=== PATIENT | female | born 1990 | race Caucasian/White ===

== ENCOUNTER 2023-03-02 00:35 | Inpatient (IN) ==
[2023-03-02] MEDS ORDERED: LIDOCAINE 1% LOCAL 20 ML VIAL INFIL PRN (01:15)
[2023-03-02] MEDS ORDERED: OXYTOCIN 30 UNITS/NSS 30 UNITS/500 ML BAG IV PRN ×3 (01:15→11:49)
[2023-03-02] MEDS: LACTATED RINGER'S 1,000 ML IV PRN ×3 (01:26→07:36)
[2023-03-02] MEDS ORDERED: PENICILLIN GK 6 MU in DEXTROSE 5% 250 ML IV STA (01:31)
--- NOTE | 2023-03-02 01:35 | History & Physical Report ---
Date of Service March 02, 2023 Assessment & Plan (1) Encounter for supervision of normal in multigravida: Plan: IUP at 40 weeks and 0 days gestation presents in active labor. GBS is positive so we will begin penicillin per protocol. Epidural when requested. Anticipate vaginal delivery History of Present Illness Primary Care Provider: NO PCP Patient is a 32-year-old 2 para 1-0-0-1 female. EDC 03/02/2023 who presents in active labor. She has had some bloody show but no leaking fluid. has been uncomplicated. GBS negative. Allergies Allergy/AdvReac Type Severity Reaction Status Date / Time avocado AdvReac Vomiting Verified 03/01/23 11:59 banana AdvReac Vomiting Verified 03/01/23 11:59 egg AdvReac shortness Verified 03/01/23 11:59 of breath No Known Drug Allergies AdvReac Verified 03/01/23 11:59 Home Medications Medication Instructions Recorded Confirmed Type multivitamin 1 tab PO DAILY 09/14/22 03/02/23 History vitamin#30 30 mg iron-10 1 cap PO DAILY #90 caps 12/10/22 03/01/23 Rx mg iron-folic acid 1 mg-omg3 capsule loratadine 5 mg-pseudoephedrine ER 1 tab PO Q12H PRN congestion #30 01/21/23 03/02/23 Rx 120 mg tablet,extended tabs release,12hr (Claritin-D 12 Hour) Patient History Surgical History S/P wisdom tooth extraction Family History Mother Thyroid disease Sister Leukemia Other Diabetes Denies family history of Ovarian cancer Breast cancer Colorectal cancer Social History Smoking Status: Never smoker Do You Dip or Chew Tobacco: No; Hx Alcohol Use: No Hx Substance Use: No Preferred Language: Indonesian Communication Ability: Effective 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 Beliefs That Will Affect Care: None marital status: marital status details: Ravi [phone] Current Living Situation: Spouse Current Living Situation Comment: lives with and son current occupational status: unemployed Other Information That Helps Us Care for You: No Feels Safe at Home: Yes Safety Concerns: Feels Safe At This Time Assistive Devices: None Review of Systems All systems reviewed & are unremarkable except as noted in HPI & below Physical Exam Constitutional: WD/WN, vitals as above Psychiatric: A+Ox3, euthymic affect Genitourinary: OB Exam Abdomen: + vertex, + estimated weight (6-7 pounds) and + regular contractions (Q4-5 minutes) Manual OB Exam: + cervical dilation 6 cm, + cervical effacement 80% and + station -2 OB Exam Monitor Tracing: + external FHT monitor used, + external uterine monitor used, + category I and + normal FHT variability Results & Data Vital Signs (Past 12 Hours) Vital Signs Temp Pulse Resp BP 03/02/23 01:10 80 102/70 03/02/23 00:35 98.1 F 18 Code Status & VTE Plan VTE Prophylaxis Plan VTE Prophylaxis will be ordered: No Coding Level of Care Code None Diagnoses Encounter for supervision of normal in multigravida Z34.80
[2023-03-02 01:42] LABS: Mean Corpuscular Hemoglobin 31.6 pg (25.0-34.0); Mean Corpuscular Hgb Conc 34.2 g/dL (32.0-36.0); Mean Corpuscular Volume 92.2 fL (80.0-100.0); Mean Platelet Volume 9.7 fL (9.4-12.4); Platelet Count 292 K/uL (130-400); RDW Standard Deviation 47.6 fL (36.4-46.3); Red Blood Count 4.12 M/uL (4.20-5.40); White Blood Count 12.33 K/ul (4.8-10.8)
[2023-03-02] MEDS ORDERED: fentaNYL citrate PF 100 MCG/2 ML VIAL ONE (01:58)
[2023-03-02] MEDS ORDERED: ePHEDrine sulfate 50 MG/ML AMP ONE (01:59)
[2023-03-02] MEDS ORDERED: fentANYL 2 MCG/ML BUPIVacaine 0.125%-NSS 100ML BAG ONE (01:59)
[2023-03-02] MEDS ORDERED: BUPIVACAINE 0.25% PF 30 ML VIAL ONE (01:59)
[2023-03-02] MEDS ORDERED: LIDOCAINE 2%/EPINEPHRINE 1:200,000 20 ML PF ONE (01:59)
[2023-03-02] MEDS ORDERED: SODIUM CHLORIDE 0.9% PF INJ 10 ML VIAL ONE (01:59)
[2023-03-02] MEDS ORDERED: LIDOCAINE 2% MPF LOCAL 5 ML VIAL EPI PRN (02:11)
[2023-03-02] MEDS ORDERED: SODIUM CHLORIDE 0.9% PF INJ 10 ML VIAL EPI PRN (02:11)
[2023-03-02] MEDS ORDERED: ROPIVACAINE 0.5% PF 5 MG/ML 20 ML VIAL EPI PRN (02:11)
[2023-03-02] MEDS ORDERED: ePHEDrine sulfate 50 MG/ML AMP IV PRN (02:11)
[2023-03-02] MEDS ORDERED: BUPIVACAINE 0.25% PF 30 ML VIAL EPI STA (02:11)
[2023-03-02] MEDS ORDERED: ONDANSETRON INJ 2 MG/ML 2 ML VIAL IV PRN (02:11)
[2023-03-02] MEDS ORDERED: fentaNYL citrate PF 100 MCG/2 ML VIAL EPI STA (02:11)
[2023-03-02] MEDS ORDERED: fentaNYL citrate PF 100 MCG/2 ML VIAL EPI PRN (02:11)
[2023-03-02] MEDS ORDERED: fentANYL 2 MCG/ML BUPIVacaine 0.125%-NSS 100ML BAG EPI PRN (02:11)
[2023-03-02] MEDS ORDERED: diphenhydrAMINE 50 MG/ML VIAL IV PRN (02:11)
[2023-03-02] MEDS ORDERED: SODIUM CHLORIDE 0.9% PF INJ 10 ML VIAL EPI STA (02:11)
[2023-03-02] MEDS ORDERED: NALBUPHINE HCL 5 MG in SYRINGE 0 ML IV PRN (02:11)
[2023-03-02] MEDS ORDERED: BUPIVACAINE 0.25% PF 30 ML VIAL EPI PRN (02:11)
[2023-03-02] MEDS ORDERED: LIDOCAINE 2%/EPINEPHRINE 1:200,000 20 ML PF EPI STA (02:11)
--- NOTE | 2023-03-02 02:13 | Anesthesiology Consultation ---
Date of Service March 02, 2023 Assessment & Plan (1) Encounter for pre-operative examination: Chart Review Chart Review: Patient NOT seen in Pre Admission Testing and Acceptable Risk for Labor Epidural Consults Requested none History Height/Weight Height: 5 ft 4 in Weight: 65.771 kg Allergies Allergy/AdvReac Type Severity Reaction Status Date / Time avocado AdvReac Vomiting Verified 03/01/23 11:59 banana AdvReac Vomiting Verified 03/01/23 11:59 egg AdvReac shortness Verified 03/01/23 11:59 of breath No Known Drug Allergies AdvReac Verified 03/01/23 11:59 Medications Home Medications Medication Instructions Recorded Confirmed Last Taken multivitamin 1 tab PO DAILY 09/14/22 03/02/23 Unknown vitamin#30 30 mg iron-10 1 cap PO DAILY #90 caps 12/10/22 03/01/23 03/02/23 mg iron-folic acid 1 mg-omg3 capsule loratadine 5 mg-pseudoephedrine ER 1 tab PO Q12H PRN congestion #30 01/21/23 03/02/23 Unknown 120 mg tablet,extended tabs release,12hr (Claritin-D 12 Hour) Active Medications Generic Name Dose Route Start Last Admin Trade Name Freq PRN Reason Stop Dose Admin Lactated Ringer's 1,000 mls @ 125 mls/hr 03/02/23 01:15 03/02/23 01:26 Lr IV 03/04/23 01:14 125 mls/hr .Q8H PRN Administration L&D Protocol Protocol Penicillin G Potassium 6 mu/ 262 mls @ 262 mls/hr 03/02/23 01:31 03/02/23 01:50 Dextrose IV 03/02/23 02:30 262 mls/hr NOW STA Administration Past Medical History Medical History (Updated 03/02/23 @ 02:13 by Colin Agee MD) Encounter for pre-operative examination Exercise / Class Metabolic Activity II 4-5 Yardwork/Stairs/Walk up hill Past Family History Family History Mother Thyroid disease Sister Leukemia Other Diabetes Denies family history of Ovarian cancer Breast cancer Colorectal cancer Past Surgical History Surgical History S/P wisdom tooth extraction Social History Smoking Status: Never smoker Do You Dip or Chew Tobacco: No Hx Alcohol Use: No Hx Substance Use: No Physical Exam Vital Signs Last Vital Signs Temp 36.7 C 03/02/23 00:35 Pulse 101 H 03/02/23 02:29 Resp 18 03/02/23 00:35 BP 107/64 03/02/23 02:31 Pulse Ox 94 03/02/23 02:29 Testing Laboratory Results 03/02/23 01:29
[2023-03-02] MEDS: PENICILLIN GK 3 MU in DEXTROSE 5% 100 ML IV PRN ×2 (06:27→10:52)
--- NOTE | 2023-03-02 11:45 | Delivery Summary ---
Vaginal Delivery Summary Date of Service March 02, 2023 Vaginal Delivery Summary and 2nd Degree LAC Patient progressed to 10 cm dilated 100% effaced +2 station pushed over intact perineum with epidural anesthesia and delivered a viable male with weight and Apgars pending. Patient pushed over approximately 2 contractions to achieve delivery. Head of the delivered in LUIS ALBERTO position repositioned to right transverse. No nuchal cord was noted. Shoulder soon delivered followed by remainder of the body. became vigorous approximately 30 to 40 seconds after delivery but with good tone proceeding. Cord was double clamped and cut at approximately 30 seconds. Cord blood obtained. Attention turned to delivery of placenta which delivered intact with three-vessel cord with just gentle traction. On inspection of the perineum vagina and cervix there is noted to be a second-degree laceration which was repaired with 3-0 Vicryl in traditional crown stitch. Needle sponge and instrument counts are correct at the completion of the case both mother and stable immediate postdelivery. Estimated blood loss of 200 mL noted. No complications with delivery or labor. [facility] Vaginal Delivery Charge Delivery Type Details: and 2nd Degree LAC
[2023-03-02] MEDS ORDERED: ACETAMINOPHEN 325 MG TAB PO PRN (11:49)
[2023-03-02] MEDS ORDERED: HYDROCORTISONE ACETATE 25 MG SUPP PR PRN (11:49)
[2023-03-02] MEDS ORDERED: BENZOCAINE 20% SPRY 85 APPLN/85 GM CAN EXT PRN (11:49)
[2023-03-02] MEDS ORDERED: DIPHTHERIA/TETANUS/PERTUSSIS Vaccine (Tdap, Age 7+yrs) 0.5mL SYR/VL IM ONE (11:49)
[2023-03-02] MEDS ORDERED: bisacodyL 10 MG SUPP PR PRN (11:49)
--- NOTE | 2023-03-02 12:05 | Anesthesia Procedure Note ---
Date of Service March 02, 2023 Anesthesia Post Epidural Note Vital Signs Vital Signs: Temp Pulse Resp BP Pulse Ox 37.0 C 91 H 18 112/67 100 03/02/23 07:01 03/02/23 11:53 03/02/23 11:53 03/02/23 11:53 03/02/23 11:44 Notes Mental Status: alert / awake / arousable Nausea / Vomiting: adequately controlled Pain: adequately controlled Airway Patency, RR, SpO2: stable & adequate BP & HR: stable & adequate Hydration State: stable & adequate Neuraxial Anesthesia: was administered and sensory block is resolving Anesthetic Complications: no major complications apparent Epidural: Removed without complications and With tip intact
[2023-03-02] MEDS ORDERED: METHYLERGONOVINE MALEATE 0.2 MG/ML AMP ONE (13:00)
[2023-03-02] MEDS ORDERED: Nursing to Pharmacy Communication SCH (19:15)
[2023-03-02] MEDS: DOCUSATE SODIUM SYRUP 100 MG/10 ML UDC PO SCH (20:32)
[2023-03-02] MEDS ORDERED: DOCUSATE SODIUM 100 MG CAP PO SCH (21:00)
[2023-03-03] MEDS: IBUPROFEN 600 MG TAB PO PRN ×2 (03:05→08:03)
[2023-03-03] MEDS: DOCUSATE SODIUM SYRUP 100 MG/10 ML UDC PO SCH (07:49)
[2023-03-03] MEDS ORDERED: FERROUS SULFATE 325 MG TAB PO SCH (08:00)
[2023-03-03] MEDS ORDERED: PRENATAL VITAMIN 1 TAB PO SCH (08:00)
--- NOTE | 2023-03-03 08:33 | Obstetrical Progress Note ---
Date of Service March 03, 2023 Assessment & Plan (1) Encounter for care and examination after delivery: Day 1 status post vaginal delivery. Patient was noted to have some increased bleeding following delivery with a total EBL of 700 mL. Received 1 extra bag of Pitocin and Methergine. H&H pending this morning. Patient doing well normal bleeding. Stable for discharge if preferred. Subjective Ambulation: ambulating normally Voiding: no voiding problems Passing Gas:: Yes Diet Tolerance:: regular diet Lochia:: Moderate Feeding Type:: breast feeding Denies calf tenderness Physical Exam Constitutional WD/WN, vitals as above Respiratory normal respiratory effort; no respiratory distress and no labored breathing Gastrointestinal (Abdomen) Inspection/Auscultation: abdomen normal to inspection; abdomen not distended Percussion/Palpation: abdomen soft; abdomen nontender, no guarding and abdomen not rigid Genitourinary OB Exam Abdomen: + fundal height Fundus: + firm and + relation to umbilicus (Below); not tender or not boggy Results & Data Vital Signs (Past 12 Hours) Vital Signs Temp Pulse Resp BP Pulse Ox O2 Del Method 03/03/23 03:00 36.5 C 76 18 96/65 L 99 Room Air 03/02/23 23:15 36.7 C 92 H 18 104/71 100 Room Air
[2023-03-03 09:32] LABS: Hematocrit (blood only) 34.9 % (37.0-47.0); Hemoglobin 11.8 g/dl (12.0-16.0)
[2023-03-03] MEDS ORDERED: bisacodyL 5 MG TABEC PO SCH (20:00)
== END 2023-03-03 15:30 | disposition home or self-care (01) | DRG 807 ==
LOC: OPB 00:35 → 4S1 00:39 → 4E2 13:45